=== PATIENT | female | born 1940 | race Caucasian/White ===

== ENCOUNTER 2019-06-09 08:10 | Day surgery (SDC) | payer MEDICARE ==
[~2019-06-09] VITALS: Ht 165.1 cm; Wt 45.5 kg
[2019-06-09] MEDS ORDERED: albumin 25% 100mL bottle x 1 IV PRN (08:30)
[2019-06-09] MEDS ORDERED: TIOT4MIS3 IH (08:45)
[2019-06-09] MEDS ORDERED: ALBU8.5H8 INH (08:45)
[2019-06-09] MEDS ORDERED: ATR0.5NEB IH (08:45)
[2019-06-09] MEDS ORDERED: CETI10CA19 PO (08:45)
[2019-06-09] MEDS ORDERED: ALBU2.5V13 NEB (08:45)
[2019-06-09] MEDS ORDERED: PANT40TA4 PO (08:45)
[2019-06-09] MEDS ORDERED: METO25TA6 PO (08:45)
[2019-06-09] MEDS ORDERED: SOLI10TA2 PO (08:45)
[2019-06-09] MEDS ORDERED: CICL6.1H4 INH (08:45)
[2019-06-09] MEDS ORDERED: ATOR20TA66 PO (08:45)
[2019-06-09] MEDS ORDERED: SERT25TA5 PO (08:45)
[2019-06-09 08:50] VITALS: BP 115/66
[2019-06-09 09:05] VITALS: BP 134/75
[2019-06-09 09:20] VITALS: BP 149/62
== END 2019-06-09 09:55 | disposition home or self-care (01) ==
LOC: SSTAY O 08:10
PROVIDERS: ATTEND Radiology Vascular & Interventional Radiology
DX: J90 Pleural effusion, not elsewhere classified (principal)
CPT/HCPCS: 32555; 71045; C1729; J2001